=== PATIENT | male | born 1990 | race African-American/Black ===

== ENCOUNTER 2021-08-23 16:52 | Emergency (ER) | payer SELFPAY ==
[~2021-08-23] VITALS: Ht 172.7 cm; Wt 90.0 kg
--- NOTE | 2021-08-23 17:30 | PHYS DOC ---
General Adult EDM: Chief Complaint: MULTIPLE COMPLAINTS HPI: HPI: 31-year-old male presents via EMS with shortness of breath. Patient tells me that feels like he is short of breath and that there is a spirit overdose taking his breath away. He states it also makes him feel nauseated sometimes. He has persistent auditory hallucinations with occasional visual hallucinations. He denies any suicidal or homicidal ideation. Denies fever or chills. He thinks he may be schizophrenic but does not take any medications. He has no other specific complaints at this time. (ERIC EUGENE DO) Review of Systems: Review of Systems: Constitutional: Denies fever or chills Eyes: Denies change in visual acuity HENT: Denies nasal congestion or sore throat Respiratory: Denies cough or shortness of breath Cardiovascular: Denies chest pain or edema GI: Denies abdominal pain, nausea, vomiting, bloody stools or diarrhea : Denies dysuria Musculoskeletal: Denies back pain or joint pain Integument: Denies rash Neurologic: Denies headache, focal weakness or sensory changes Endocrine: Denies polyuria or polydipsia Lymphatic: Denies swollen glands Psychiatric: Auditory hallucinations, delusions (ERIC EUGENE DO) Current Medications: Current Meds: Current Medications Medications (Trade) Dose Ordered Sig/Guzman Start Time Stop Time Status Last Admin Dose Admin Hydroxyzine HCl (Atarax) 25 mg 1X STAT 08/23/21 17:13 08/23/21 17:14 UNV (ERIC EUGENE DO) Physical Exam: PE: Constitutional: Well developed, well nourished, no acute distress, non-toxic appearance. [] HENT: Normocephalic, atraumatic, bilateral external ears normal, oropharynx moist, no oral exudates, nose normal. [] Eyes: PERRLA, EOMI, conjunctiva normal, no discharge. [] Neck: Normal range of motion, no tenderness, supple, no stridor. [] Cardiovascular: Heart rate regular rhythm, no murmur [] Lungs & Thorax: Bilateral breath sounds clear to auscultation [] Abdomen: Bowel sounds normal, soft, no tenderness, no masses, no pulsatile masses. [] Skin: Warm, very dry, no erythema, no rash. [] Back: No tenderness, no CVA tenderness. [] Extremities: No tenderness, no cyanosis, no clubbing, ROM intact, no edema. [] Neurologic: Alert and oriented X 3, normal motor function, normal sensory function, no focal deficits noted. [] Psychologic: Affect normal, hallucinations, delusions. [] (ERIC EUGENE DO) EKG: EKG: [] (ERIC EUGENE DO) Radiology/Procedures: Radiology/Procedures: [] (ERIC EUGENE DO) Heart Score: C/O Chest Pain: N/A Risk Factors: Risk Factors: DM, Current or recent (<one month) smoker, HTN, HLP, family history of CAD, obesity. Risk Scores: Score 0 - 3: 2.5% MACE over next 6 weeks - Discharge Home Score 4 - 6: 20.3% MACE over next 6 weeks - Admit for Clinical Observation Score 7 - 10: 72.7% MACE over next 6 weeks - Early Invasive Strategies (ERIC EUGENE DO) Course & Med Decision Making: Course & Med Decision Making Pertinent Labs and Imaging studies reviewed. (See chart for details) The patient's work-up is pending. We have contacted the behavioral health team. Consult is also pending. I will sign the patient out to reporter anchor at [phone]. [] (ERIC EUGENE DO) Course & Med Decision Making Patient care handed off to me at checkout pending psychiatric assessment team liaison evaluation. Patient alert and oriented no acute distress cooperative and pleasant. Amatory analysis not concerning. Covid negative. Positive for methamphetamines and cannabis which patient has endorsed. Psychiatric assessment team liaison also taking part in patient's care is she is his main source of contact between the guidance Center and social work. PAT field marketing team leader currently active in making sure patient has a place to live, getting a cell phone and following up with the guidance Center. Patient states he is not suicidal or homicidal and has been having these audio hallucinations for years and are not distressing. Patient is an advocate say that he wants to quit using substances and follow what his counselor say but is having trouble because he does not have insurance. Psychiatric assessment team liaison/his manager social media feel he is safe to be discharged home with his uncle as that is where he is living with a safety plan and she will contact him in the morning to get things rolling on going back to the guidance Center and getting himself on and making sure he has a place to stay. Patient, patient's family, patient's manager social media are in agreement with this plan. (GABRIELLA SCNHEIDER MD) Dragon Disclaimer: Dragon Disclaimer: This electronic medical record was generated, in whole or in part, using a voice recognition dictation system. (ERIC EUGENE DO) Departure Departure: Impression: Primary Impression: Auditory hallucinations Additional Impression: Substance abuse Disposition: HOME / SELF CARE / HOMELESS Condition: GOOD Referrals: PCP,NO (PCP) MADELINE DOWNEY MD Patient Instructions: Hallucinations and Delusions Additional Instructions: Thank you for coming into the emergency department tonight and allowing us to take care of you. Please read the attached information carefully to go back over some of the things we discussed. It is very important that you follow-up with your psychiatric assessment team liaison/counselors recommendations with her first thing in the morning and go back over your safety plan with her and your family. It is very important that she continue on her goals with staying away from substance use and the people associated with the substances, living with your family and having your support and following the recommendations of your counselor. If you need help however or have any new or concerning symptoms to the emergency department is open 24 hours a day and you should feel free to come back if you have any of these new or concerning symptoms as we discussed. ERIC EUGENE DO Aug 23, 2021 17:30 GABRIELLA SCHNEIDER MD Aug 23, 2021 20:56
[2021-08-23] MEDS ORDERED: hydrOXYzine HCL 25 MG TABLET PO ONE (18:00)
[2021-08-23 18:12] LABS: BACTERIA,URINE FEW /HPF (0-FEW); BILIRUBIN,URINE NEG (NEG); CLARITY,URINE CLEAR; COLOR,URINE YELLOW; GLUCOSE,URINE NEG (NEG); NITRITE,URINE NEG (NEG); SQUAMOUS EPITHELIAL CELL,UR MOD /LPF; UROBILINOGEN,URINE 0.2 mg/dL (0.2 mg/dL); WBC,URINE 20-40 /HPF (0-4)
[2021-08-23 18:23] LABS: BARBITURATES NEG (NEG); BENZODIAZEPINES NEG (NEG); CANNABINOIDS POS (NEG); COCAINE NEG (NEG); METHADONE NEG (NEG); OPIATES NEG (NEG); PHENCYCLIDINE NEG (NEG)
[2021-08-23 18:25] LABS: AMPHETAMINE/METHAMPHETAMINE POS (NEG)
[2021-08-23 18:55] LABS: BASO % 1 % (0-3); EOS % 1 % (0-3); HEMATOCRIT 40.9 % (39.0-53.0); HEMOGLOBIN 13.3 g/dL (13.0-17.5); LYMPH # 1.4 x10^3/uL (1.0-4.8); LYMPH % 33 % (24-48); MEAN CORPUSCULAR HEMOGLOBIN 26 pg (25-35); MEAN CORPUSCULAR HGB CONC 33 g/dL (31-37); MEAN CORPUSCULAR VOLUME 80 fL (79-100); MONO # 0.3 x10^3/uL (0.0-1.1); MONO % 7 % (0-9); NEUT # 2.5 x10^3uL (1.8-7.7); NEUT % 58 % (31-73); PLATELET COUNT 225 x10^3/uL (140-400); RED CELL DISTRIBUTION WIDTH 13.5 % (11.5-14.5); WHITE BLOOD COUNT 4.4 x10^3/uL (4.0-11.0)
[2021-08-23 19:04] LABS: CREATININE 0.9 mg/dL (0.7-1.3); GFR 120.7; POTASSIUM 3.8 mmol/L (3.5-5.1)
[2021-08-23 19:10] LABS: ALBUMIN 3.6 g/dL (3.4-5.0); ALBUMIN/GLOBULIN RATIO 0.9 (1.0-1.7); TOTAL BILIRUBIN 0.3 mg/dL (0.2-1.0); TOTAL PROTEIN 7.6 g/dL (6.4-8.2)
[2021-08-23 21:04] VITALS: BP 142/70
[2021-08-23] MEDS ORDERED: HALOPERIDOL 5 MG TABLET PO ONE (21:15)
== END 2021-08-23 21:07 | disposition home or self-care (01) ==
LOC: ER 16:52
DX: R44.0 Auditory hallucinations (principal); R44.1 Visual hallucinations; F19.10 Other psychoactive substance abuse, uncomplicated; Z20.822 Contact with and (suspected) exposure to COVID-19
CPT/HCPCS: 80053; 80307; 81001; 85025; 87086; 87426; 99283; C9803; U0003